=== PATIENT | male | born 1960 | race Caucasian/White ===

== ENCOUNTER 2018-04-11 22:12 | Emergency (ER) | END 2018-04-12 01:56 | disposition home or self-care (01) ==

== ENCOUNTER 2018-08-15 21:48 | Emergency (ER) | END 2018-08-16 01:08 | disposition left against medical advice (07) ==

== ENCOUNTER 2018-11-26 22:13 | Emergency (ER) | payer OTHER ==
[~2018-11-26] VITALS: Ht 182.9 cm; Wt 139.3 kg
[~2018-11-26 22:13] MED LIST: APIX5TAB PO; ATOR40TA68 PO; BENA40TA56 PO; CARV12.579 PO; PROPOFOL 200 MG INJ ONE; TICA90TA PO
[2018-11-26 22:16] VITALS: Ht 182.9 cm; Wt 139.3 kg
[2018-11-26] MEDS ORDERED: SOD CHLORIDE 0.9% 500 ML IV STA (22:43)
[2018-11-26] MEDS ORDERED: PROPOFOL 200 MG INJ IV STA (22:46)
[2018-11-26 23:30] VITALS: BP 87/51; PULSE 91; RESP 29
--- NOTE | 2018-11-27 01:12 | ERD ---
ER Documentation Chief Complaint Chief Complaint palpitations x2 hrs. hx aflutter denies cp or sob. HPI This is a very pleasant 58 female, palpitation for the past 2 hours. Patient has a history of a fluent evidence responsive only to synchronized cardioversion. Reviewing EMR, patient's been in multiple times in the past. He has a history of ablation which did not take. No fevers no chills no nausea no vomiting no other current complaints. ROS All systems reviewed and are negative except as per history of present illness. Medications Home Meds Active Scripts Ticagrelor* (Brilinta*) 90 Mg Tablet, 90 MG PO BID for 60 Days, #120 Prov:SPIKE MEMBRENO MD 06/16/16 Apixaban* (Eliquis*) 5 Mg Tablet, 5 MG PO BID for 30 Days, TAB 1 Refill Prov:GEOVANY FERNÁNDEZ. 02/23/16 Atorvastatin* (Atorvastatin*) 40 Mg Tablet, 20 MG PO HS for 30 Days, TAB 1 Refill Prov:GEOVANY FERNÁNDEZ 02/23/16 Reported Medications Carvedilol* (Carvedilol*) 12.5 Mg Tablet, 12.5 MG PO BID, #60 TAB 04/12/18 Benazepril Hcl* (Benazepril Hcl*) 40 Mg Tablet, 40 MG PO DAILY 02/21/16 Allergies Allergies: Coded Allergies: No Known Allergy (Verified , 11/26/18) PMhx/Soc History of Surgery: Yes (bing hip, bing leg ) Anesthesia Reaction: No Hx Neurological Disorder: No Hx Respiratory Disorders: No Hx Cardiac Disorders: Yes (Ablation, stent x1, HTN, HLD, AFLUTTER, SVT) Hx Psychiatric Problems: No Hx Miscellaneous Medical Probl: No Hx Alcohol Use: No Hx Substance Use: No Hx Tobacco Use: No Smoking Status: Former smoker Physical Exam Vitals Vital Signs Date Temp Pulse Resp B/P (MAP) Pulse Ox O2 O2 Flow FiO2 Time Delivery Rate 11/26/18 100 3.0 23:05 11/26/18 97.0 97 20 90/51 (64) 96 22:16 Physical Exam Const: No acute distress Head: Atraumatic Eyes: Normal Conjunctiva ENT: Normal External Ears, Nose and Mouth. Neck: Full range of motion. No meningismus. Resp: Clear to auscultation bilaterally Cardio: Regular rate and rhythm, no murmurs Abd: Soft, non tender, non distended. Normal bowel sounds Skin: No petechiae or rashes Back: No midline or flank tenderness Ext: No cyanosis, or edema Neur: Awake and alert Psych: Normal Mood and Affect Result Diagram: 11/26/18224011/26/182240 Results 24 hrs Laboratory Tests Test 11/26/18 22:41 White Blood Count 10.8 10^3/ul Red Blood Count 4.94 10^6/ul Hemoglobin 14.7 g/dl Hematocrit 44.3 % Mean Corpuscular Volume 89.7 fl Mean Corpuscular Hemoglobin 29.8 pg Mean Corpuscular Hemoglobin Concent 33.2 g/dl Red Cell Distribution Width 12.5 % Platelet Count 192 10^3/UL Mean Platelet Volume 9.4 fl Immature Granulocytes % 0.400 % Neutrophils % 77.7 % Lymphocytes % 12.6 % Monocytes % 7.2 % Eosinophils % 1.6 % Basophils % 0.5 % Nucleated Red Blood Cells % 0.0 /100WBC Immature Granulocytes # 0.040 10^3/ul Neutrophils # 8.4 10^3/ul Lymphocytes # 1.4 10^3/ul Monocytes # 0.8 10^3/ul Eosinophils # 0.2 10^3/ul Basophils # 0.1 10^3/ul Nucleated Red Blood Cells # 0.0 10^3/ul Sodium Level 137 mmol/L Potassium Level 4.8 mmol/L Chloride Level 105 mmol/L Carbon Dioxide Level 22 mmol/L Anion Gap 10 Blood Urea Nitrogen 37 mg/dl Creatinine 1.52 mg/dl Est Glomerular Filtrat Rate mL/min 48 mL/min Glucose Level 148 mg/dl Calcium Level 9.2 mg/dl Total Bilirubin 0.4 mg/dl Direct Bilirubin 0.00 mg/dl Indirect Bilirubin 0.4 mg/dl Aspartate Amino Transf (AST/SGOT) 39 IU/L Alanine Aminotransferase (ALT/SGPT) 41 IU/L Alkaline Phosphatase 92 IU/L Troponin I 0.025 ng/ml B-Type Natriuretic Peptide 242 PG/ML Total Protein 7.6 g/dl Albumin 4.3 g/dl Globulin 3.30 g/dl Albumin/Globulin Ratio 1.30 Current Medications Medications Dose Sig/Julissa Start Time Status Last (Trade) Ordered Route PRN Stop Time Admin Dose Reason Admin Sodium 500 ml @ Q1H STAT 11/26/18 DC 11/26/18 Chloride 500 mls/hr IV 22:43 11/26/18 22:56 23:42 Propofol 70 mg ONCE STAT 11/26/18 DC 11/26/18 (Diprivan) IV 22:46 11/26/18 23:06 23:01 Procedures/MDM Procedural Sedation: Pre-assessment performed. See preceding complete history and physical for details. Time out performed. See sedation documentation for details. Medication(s): Propofol Complications: No hypoxic or apneic events Recovered without incident. Greater than 15 minutes of face to face time included in sedation and recovery. Procedural Sedation: Pre-assessment performed. See preceding complete history and physical for details. Time out performed. Host And Hostess, Continuous Pulse Ox. See sedation documentation for details. Medication(s): Propofol Complications: No hypoxic or apneic events Recovered without incident. Greater than 15 minutes of face to face time included in sedation and recovery. Cardioversion: Pre-assessment performed. See preceding complete history and physical for details. Time out performed. Host And Hostess, Continuous Pulse Ox. See sedation documentation for details. Technique: Biphasic Synchronized Cardioversion 200J: Converted Complications: No hypotensive events Critical Care: Time: 45 minutes, independent of any separately billable procedural time Treatments/Evaluations: Close monitoring for dangerous arrhythmia and cardiovascular collapse, while treating with advance cardiac medications and techniques. EKG: Rate/Rhythm: [Normal Sinus Rhythm] QRS, ST, T-waves: [No changes consistent w/ acute ischemia] Impression: [No evidence of ischemia or arrhythmia] Chest X-ray 1V Interpreted by me: Soft Tissue: No acute abnormalities Bones: No acute abnormalities Mediastinum/Cardiac Silhouette/Lungs: [No acute abnormalities] Medical decision making: This is a 58-year-old male comes in with ventricular tachycardia that is been cardioverted. At this point patient will need to be admitted. However, patient is decided to sign AGAINST MEDICAL ADVICE to follow- up with his sock folder. Upon signing out AMA he is alert and oriented x4 with goal oriented speech is good decision-making capacity ability to negotiate the community. He understands possible risks of signing out AMA including possible due to recurrence of condition. Departure Diagnosis: Primary Impression: Tachycardia Additional Impression: Palpitations Condition: Critical DANIEL FRAZIER Nov 27, 2018 01:12
[2018-12-19] MEDS ORDERED: APIX5TAB PO (21:15)
[2018-12-19] MEDS ORDERED: BENA40TA56 PO (21:16)
[2018-12-19] MEDS ORDERED: HYDR-3671 PO (21:16)
[2018-12-19] MEDS ORDERED: ATOR40TA68 PO (21:17)
[2018-12-19] MEDS ORDERED: FURO20TA3 PO (21:18)
[2018-12-19] MEDS ORDERED: CARV12.579 PO (21:18)
[2018-12-19] MEDS ORDERED: TICA90TA PO (21:18)
[2018-12-19] MEDS ORDERED: IBUP-1542 PO (23:43)
== END 2018-11-27 04:26 | disposition left against medical advice (07) ==
LOC: E/R 22:13
DX: R00.0 Tachycardia, unspecified (principal); I10 Essential (primary) hypertension; Z79.01 Long term (current) use of anticoagulants; Z87.891 Personal history of nicotine dependence; Z98.61 Coronary angioplasty status
CPT/HCPCS: 36415; 71045; 80053; 83880; 84484; 85025; 93005; 94770; 99291; J7040; 92960